=== PATIENT | female | born 1980 | race Caucasian/White ===

== ENCOUNTER 2020-07-26 06:00 | Inpatient (IN) ==
[2020-07-26] MEDS ORDERED: Ondansetron 4 MG/2 ML VIAL IVP PRN ×2 (06:18→08:06)
[2020-07-26] MEDS ORDERED: Lidocaine 1% 20 ML MDV ID PRN (06:18)
[2020-07-26] MEDS ORDERED: Metoclopramide 10 MG/2 ML VIAL IVP PRN (06:18)
[2020-07-26] MEDS ORDERED: *HR* Nalbuphine 10 MG/ML AMPUL IV PRN (06:18)
[2020-07-26] MEDS ORDERED: Naloxone 0.4 MG/ML INJ IVP PRN ×2 (06:18→08:06)
[2020-07-26] MEDS ORDERED: Famotidine 20 MG/2 ML VIAL IVP PRN (06:18)
[2020-07-26 07:13] LABS: Basophils % 0.2 %; Eosinophils # 0.1 K/mcL (0.0-0.6); Eosinophils % 0.5 %; Hemoglobin 13.2 g/dL (11.5-15.4); Immature Granulocytes % 0.5 % (0-4); Lymphocytes # 1.9 K/mcL (0.6-4.6); Lymphocytes % 18.8 %; Mean Corpuscular HGB Conc 32.2 g/dL (31.6-35.5); Mean Corpuscular Hemoglobin 28.8 pg (28.0-33.3); Mean Corpuscular Volume 89.3 fL (83.0-100.0); Mean Platelet Volume 9.9 fL (9.4-12.4); Monocytes # 0.6 K/mcL (0.0-1.3); Monocytes % 5.5 %; Neutrophils # 7.6 K/mcL (1.6-8.9); Platelet Count 313 K/mcL (140-400); Red Blood Count 4.59 M/mcL (3.82-4.97); Segmented Neutrophils % 74.5 %; White Blood Count 10.2 K/mcL (4.3-11.1)
[2020-07-26] MEDS ORDERED: Ropivacaine/PF 0.2% 20 ML VIAL EP ONE (08:06)
[2020-07-26] MEDS ORDERED: EPHEDrine 50 MG/ML VIAL IVP PRN (08:06)
[2020-07-26] MEDS: miSOPROStoL 25 MCG TABLET PO PRN ×2 (08:14→12:29)
[2020-07-26 09:00] LABS: Amphetamine Screen,Urine Negative ng/mL (Cutoff=1000); Barbiturate Screen,Urine Negative ng/mL (Cutoff=200); Benzodiazepines Screen,Urine Negative ng/mL (Cutoff=200); Cannabinoid Screen,Urine Negative ng/mL (Cutoff = 50); Cocaine Screen,Urine Negative ng/mL (Cutoff= 300); Opiate Screen,Urine Negative ng/mL (Cutoff=300); Phencyclidine Screen,Urine Negative ng/mL (Cutoff=25)
[2020-07-26 12:09] LABS: Bilirubin,Urine Negative (Negative); Blood,Urine Negative (Negative); Clarity,Urine Clear (Clear); Color,Urine Light-Yellow (Yellow); Glucose,Urine (UA) Normal (Normal); Ketones,Urine Trace mg/dL (Negative); Leukocyte Esterase,Urine Negative (Negative); Nitrite,Urine Negative (Negative); PH,Urine 5.5 pH Units (5.0-8.0); Protein,Urine Trace mg/dL (Neg-Trace); Specific Gravity,Urine 1.024 (1.010-1.025); Urobilinogen,Urine Normal (Normal)
[2020-07-26 12:15] LABS: Protein/Creatinine Ratio,Urine 0.24 mg/mg (0.00-0.20)
[2020-07-26 12:25] LABS: Alanine Aminotransferase 11 Units/L (7-52); Aspartate Amino Transferase 11 Units/L (13-39); BUN/Creatinine Ratio 23 (6-26); Blood Urea Nitrogen 10 mg/dL (6-20); Lactate Dehydrogenase 114 Units/L (140-271); Uric Acid 5.1 mg/dL (2.3-7.6); eGFR For African Americans > 60 (> 60); eGFR For Non-African Americans > 60 (> 60)
[2020-07-26] MEDS: miSOPROStoL 25 MCG TABLET VG SCH (16:05)
[2020-07-26] MEDS: *HR* Metformin 500 MG TABLET PO SCH (20:41)
[2020-07-26] MEDS: Ringers Solution, Lactated 1,000 ML IVC SCH (21:05)
[2020-07-26] MEDS: Oxytocin 20 units/ LR 1000 mL 20 UNIT/1,000 ML BAG IVC SCH (21:06)
[2020-07-26] MEDS ORDERED: *HR* Labetalol 20 MG/4 ML SYRINGE IVP PRN ×3 (21:30)
[2020-07-26] MEDS ORDERED: *HR* Labetalol 20 MG/4 ML SYRINGE IVP ONE (21:31)
[2020-07-27] MEDS: *HR* Metformin 500 MG TABLET PO SCH ×2 (09:49→22:55)
[2020-07-27 19:05] LABS: Adenovirus Not Detected (Not Detect); Bordetella Pertussis Not Detected (Not Detect); Chlamydophila pneumoniae Not Detected (Not Detect); Coronavirus 229E Not Detected (Not Detect); Coronavirus HKU1 Not Detected (Not Detect); Coronavirus NL63 Not Detected (Not Detect); Coronavirus OC43 Not Detected (Not Detect); Human Metapneumovirus Not Detected (Not Detect); Human Rhinovirus/Enterovirus Not Detected (Not Detect); Influenza A Subtype 2009 H1 Not Detected (Not Detect); Influenza B Not Detected (Not Detect); Mycoplasma pneumoniae Not Detected (Not Detect); Parainfluenza Virus 1 Not Detected (Not Detect); Parainfluenza Virus 2 Not Detected (Not Detect); Parainfluenza Virus 3 Not Detected (Not Detect); Parainfluenza Virus 4 Not Detected (Not Detect); Respiratory Syncytial Virus Not Detected (Not Detect); SARS-CoV-2 Not Detected (Not Detect)
[2020-07-27] MEDS: Oxytocin 20 units/ LR 1000 mL 20 UNIT/1,000 ML BAG IVC SCH (20:03)
[2020-07-27] MEDS: Epidural Premix (fent/bupiv) 110 ML EP SCH ×3 (20:04→20:06)
[2020-07-27] MEDS ORDERED: Azithromycin 500 MG in 0.9 % Sodium Chloride 250 ML IVPB STA (20:19)
[2020-07-27] MEDS ORDERED: Azithromycin 500 MG in 0.9 % Sodium Chloride 250 ML IVPB ONE (20:21)
[2020-07-27] MEDS ORDERED: Famotidine 20 MG/2 ML VIAL IVP ONE (20:22)
[2020-07-27] MEDS ORDERED: CeFAZolin 2,000 MG/50 ML BAG IVPB ONE (20:22)
[2020-07-27] MEDS ORDERED: Ringers Solution, Lactated 1,000 ML IVC ONE (20:22)
[2020-07-27] MEDS ORDERED: Metoclopramide 10 MG/2 ML VIAL IVP ONE (20:22)
[2020-07-27] MEDS ORDERED: Oxytocin 20 units/ LR 1000 mL 20 UNIT/1,000 ML BAG IVC ONE (20:22)
[2020-07-27] MEDS: Azithromycin 500 MG in 0.9 % Sodium Chloride 250 ML IVPB ONE ×2 (20:33→22:58)
[2020-07-27] MEDS ORDERED: *HR* Phenylephrine 10 MG/ML VIAL ONE (20:34)
[2020-07-27] MEDS ORDERED: Lidocaine/EPI 1:200k 2% PF 20 ML VIAL ONE (20:35)
[2020-07-27] MEDS ORDERED: Ondansetron 4 MG/2 ML VIAL ONE (20:50)
[2020-07-27] MEDS ORDERED: *HR* Morphine Sulfate/PF 10 MG/10 ML AMPUL ONE (21:06)
[2020-07-27] MEDS ORDERED: Acetaminophen IV 1,000 MG/100 ML BAG IVPB ONE (21:12)
[2020-07-27] MEDS ORDERED: Ketorolac 30 MG/ML VIAL ONE (21:25)
[2020-07-27] MEDS ORDERED: *HR* OxyCODONE Immed Rel 5 MG TABLET PO PRN (22:00)
[2020-07-27] MEDS ORDERED: *HR* Nalbuphine 10 MG/ML AMPUL IV PRN (22:01)
[2020-07-27] MEDS: miSOPROStoL 25 MCG TABLET VG SCH ×2 (22:55→22:56)
[2020-07-27] MEDS: Ringers Solution, Lactated 1,000 ML IVC SCH ×2 (22:56→22:57)
[2020-07-28] MEDS ORDERED: Simethicone 80 MG TAB.CHEW PO PRN (00:53)
[2020-07-28] MEDS ORDERED: Ondansetron 4 MG/2 ML VIAL IVP PRN (00:53)
[2020-07-28] MEDS ORDERED: *HR* OxyCODONE Immed Rel 5 MG TABLET PO PRN (00:53)
[2020-07-28] MEDS ORDERED: *HR* OxyCODONE/APAP 5/325 TABLET PO PRN (00:53)
[2020-07-28] MEDS ORDERED: Sennosides 8.6 MG TABLET PO PRN (00:53)
[2020-07-28] MEDS ORDERED: Rho Immune Globulin 1,500 UNIT SYRINGE IM ONE (00:53)
[2020-07-28] MEDS ORDERED: Oxytocin 20 units/ LR 1000 mL 20 UNIT/1,000 ML BAG IVC SCH ×2 (00:53)
[2020-07-28] MEDS ORDERED: Metoclopramide 10 MG/2 ML VIAL IVP PRN (00:53)
[2020-07-28] MEDS ORDERED: Ringers Solution, Lactated 1,000 ML IVC SCH (00:53)
[2020-07-28] MEDS: Acetaminophen 325 MG TABLET PO SCH ×2 (02:16→20:41)
[2020-07-28] MEDS: Ibuprofen 600 MG TABLET PO SCH ×4 (02:16→23:52)
[2020-07-28 06:35] LABS: Basophils % 0.2 %; Eosinophils # 0.1 K/mcL (0.0-0.6); Eosinophils % 0.4 %; Immature Granulocytes % 0.4 % (0-4); Lymphocytes # 2.4 K/mcL (0.6-4.6); Mean Corpuscular HGB Conc 31.6 g/dL (31.6-35.5); Mean Corpuscular Hemoglobin 28.4 pg (28.0-33.3); Mean Platelet Volume 9.8 fL (9.4-12.4); Monocytes # 0.9 K/mcL (0.0-1.3); Monocytes % 6.5 %; Neutrophils # 10.6 K/mcL (1.6-8.9); Platelet Count 293 K/mcL (140-400); Red Blood Count 4.22 M/mcL (3.82-4.97); Red Cell Distribution Width 15.2 % (11.5-14.5); Segmented Neutrophils % 75.5 %; White Blood Count 14.1 K/mcL (4.3-11.1)
[2020-07-28] MEDS: Prenatal Vit/FA 1 EACH TABLET PO SCH (09:20)
[2020-07-29] MEDS: Ibuprofen 600 MG TABLET PO SCH ×2 (08:16→19:58)
[2020-07-29] MEDS: Prenatal Vit/FA 1 EACH TABLET PO SCH (08:17)
[2020-07-29] MEDS: Acetaminophen 325 MG TABLET PO SCH (23:24)
[2020-07-30] MEDS: Ibuprofen 600 MG TABLET PO SCH ×2 (05:32→07:20)
[2020-07-30] MEDS: Acetaminophen 325 MG TABLET PO SCH (05:34)
[2020-07-30] MEDS: Prenatal Vit/FA 1 EACH TABLET PO SCH (08:46)
[2020-07-30 18:24] VITALS: BP 138/97
== END 2020-07-30 18:50 | disposition home or self-care (01) | DRG 787 ==
LOC: 1NENULAB 06:06 → 1NENUOBS 07-28 01:12
PROVIDERS: ADMIT Obstetrics & Gynecology; ATTEND Obstetrics & Gynecology